=== PATIENT | female | born 1995 | race Asian ===

== ENCOUNTER 2023-09-06 12:40 | Emergency (ER) | payer OTHER ==
[~2023-09-06] VITALS: Ht 167.6 cm; Wt 63.5 kg
[2023-09-06 13:12] VITALS: BP 110/89; PULSE 79; RESP 18; TEMP 98.5; O2SAT 99
[2023-09-06] MEDS ORDERED: BENZ200C4 PO (14:19)
[2023-09-06] MEDS ORDERED: BENZ-300 PO (14:19)
[2023-09-06 14:32] LABS: FLU A ANTIGEN negative (NEGATIVE); FLU B ANTIGEN negative (NEGATIVE)
== END 2023-09-06 15:06 | disposition home or self-care (01) ==
LOC: MED 12:40
DX: J02.9 Acute pharyngitis, unspecified (principal); R51.9 Headache, unspecified; Z20.822 Contact with and (suspected) exposure to COVID-19; Z79.899 Other long term (current) drug therapy
CPT/HCPCS: 81025; 99283